=== PATIENT | male | born 1960 | race Hispanic/Latino ===

== ENCOUNTER 2023-04-22 18:35 | Inpatient (IN) | payer MEDICARE ==
[~2023-04-22] VITALS: Ht 170.2 cm; Wt 58.3 kg
[~2023-04-22 18:35] MED LIST: LIDOCAINE HCL 2% LOCAL INJ 5 ML SDV VIAL INJ ONE; POVIDONE IODINE 0.05% 0.05 % ML PO ONE; PROPOFOL IV EMULSION 10 MG/ML 20 ML VIAL ONE
[2023-04-22] MEDS ORDERED: ONDANSETRON HCL INJ 2MG/ML 2ML 2 MG/ML VIAL IV STA (18:44)
[2023-04-22] MEDS ORDERED: SODIUM CHLORIDE 0.9% 1000ML 1,000 ML IV ONE (18:45)
[2023-04-22 19:05] LABS: BASOPHILS % 0.1 % (0.0-1.0); EOSINOPHILS % 0.4 % (0.0-6.0); HEMATOCRIT 38.7 % (38.2-49.6); HEMOGLOBIN 13.8 g/dL (14.0-18.0); LYMPHOCYTES # (AUTO) 0.7 (1.0-3.2); LYMPHOCYTES % 9.3 % (18.0-39.1); MEAN CORPUSCULAR HEMOGLOBIN 33.2 pg (28-32); MEAN CORPUSCULAR HGB CONC 35.7 g/dL (31-35); MONOCYTES # (AUTO) 0.6 (0.2-0.8); MONOCYTES % 7.1 % (4.4-11.3); NEUTROPHILS # (AUTO) 6.5 (2.1-6.9); NEUTROPHILS % 82.8 % (38.7-80.0); PLATELET COUNT 188 x10e3/uL (140-360); RED BLOOD COUNT 4.16 x10e6/uL (4.3-5.7); RED CELL DISTRIBUTION WIDTH 11.7 % (11.7-14.4)
[2023-04-22 19:11] LABS: CLARITY,URINE CLEAR (CLEAR); COLOR,URINE YELLOW (YELLOW); KETONES,URINE NEGATIVE (NEGATIVE); LEUKOCYTE ESTERASE ,URINE NEGATIVE (NEGATIVE); NITRITE,URINE NEGATIVE (NEGATIVE); PROTEIN,URINE DIPSTICK NEGATIVE (NEGATIVE); URINE UROBILINOGEN 0.2 mg/dL (0.2 - 1)
[2023-04-22 19:19] LABS: ALBUMIN 3.9 g/dL (3.5-5.0); ALBUMIN/GLOBULIN RATIO 1.4 (0.8-2.0); ANION GAP 14.2 mmol/L (8-16); CALCIUM 9.4 mg/dL (8.4-10.2); CREATININE, SERUM 0.97 mg/dL (0.72-1.25); POTASSIUM 4.2 mmol/L (3.5-5.1)
[2023-04-22 19:22] LABS: BACTERIA,URINE RARE /HPF
[2023-04-22] MEDS ORDERED: IOPAMIDOL 370 MG/ML 100 ML INFUS..BTL INJ ONE (19:38)
[2023-04-22] MEDS ORDERED: DEXTROSE 50% SYRINGE 50 ML IV PRN (20:15)
[2023-04-22] MEDS: SODIUM CHLORIDE 0.9% 1000ML 1,000 ML IV SCH (20:53)
[2023-04-22] MEDS: INSULIN REGULAR, HUMAN 100 UNIT/1 ML SQ SCH (20:57)
[2023-04-22] MEDS: METRONIDAZOLE 500MG/NS 100ML 100 ML IV SCH (21:46)
[2023-04-22 23:45] VITALS: BP 133/68; O2SAT 100
[2023-04-23] VITALS (8 sets, daily range): BP systolic 112–133; BP diastolic 72–82; PULSE 60–84; RESP 16–20; TEMP 97.6–98; O2SAT 99–100
[2023-04-23] MEDS: ONDANSETRON HCL INJ 2MG/ML 2ML 2 MG/ML VIAL IV PRN ×3 (00:33→21:20)
[2023-04-23] MEDS: Morphine 2mg Syringe 2 MG/ML SYR IV PRN ×3 (00:33→21:21)
[2023-04-23] MEDS: METRONIDAZOLE 500MG/NS 100ML 100 ML IV SCH ×3 (05:18→17:10)
[2023-04-23] MEDS: SODIUM CHLORIDE 0.9% 1000ML 1,000 ML IV SCH ×3 (05:19→20:31)
[2023-04-23 06:29] LABS: BASOPHILS % 0.5 % (0.0-1.0); EOSINOPHILS # (AUTO) 0.3 (0.0-0.4); EOSINOPHILS % 4.4 % (0.0-6.0); HEMATOCRIT 33.6 % (38.2-49.6); HEMOGLOBIN 11.3 g/dL (14.0-18.0); LYMPHOCYTES # (AUTO) 1.3 (1.0-3.2); LYMPHOCYTES % 22.3 % (18.0-39.1); MEAN CORPUSCULAR HEMOGLOBIN 33.1 pg (28-32); MEAN CORPUSCULAR HGB CONC 33.6 g/dL (31-35); MEAN CORPUSCULAR VOLUME 98.5 fL (81-99); MONOCYTES # (AUTO) 0.6 (0.2-0.8); MONOCYTES % 11.3 % (4.4-11.3); NEUTROPHILS # (AUTO) 3.4 (2.1-6.9); NEUTROPHILS % 61.1 % (38.7-80.0); PLATELET COUNT 148 x10e3/uL (140-360); RED BLOOD COUNT 3.41 x10e6/uL (4.3-5.7); RED CELL DISTRIBUTION WIDTH 11.6 % (11.7-14.4)
[2023-04-23 06:53] LABS: ALBUMIN 3.1 g/dL (3.5-5.0); ALBUMIN/GLOBULIN RATIO 1.3 (0.8-2.0); ANION GAP 9.9 mmol/L (8-16); CALCIUM 8.1 mg/dL (8.4-10.2); CREATININE, SERUM 0.78 mg/dL (0.72-1.25); POTASSIUM 3.9 mmol/L (3.5-5.1)
[2023-04-23] MEDS ORDERED: GADOBENATE DIMEGLUMINE 1 ML IV ONE ×2 (08:44→10:38)
[2023-04-23] MEDS: INSULIN REGULAR, HUMAN 100 UNIT/1 ML SQ SCH ×4 (09:10→20:32)
[2023-04-23] MEDS ORDERED: LEVEMIR SQ (14:12)
[2023-04-23] MEDS ORDERED: GABAPENTIN400 MG PO (14:12)
[2023-04-23] MEDS ORDERED: GLIPIZIDE-METF1 EAC2 PO (14:12)
[2023-04-23] MEDS ORDERED: LOSARTAN POTASS50 MG PO (14:12)
[2023-04-23] MEDS ORDERED: TRULICITY1.5 MG/0.5 SQ (14:12)
[2023-04-23] MEDS: TAMSULOSIN HCL 0.4 MG CAP PO SCH (17:10)
[2023-04-23 23:32] LABS: FERRITIN 130.79 ng/mL (21.81-274.66)
[2023-04-24] VITALS (9 sets, daily range): BP systolic 127–150; BP diastolic 76–86; PULSE 75–86; RESP 17–20; TEMP 97–98.7; O2SAT 98–100
[2023-04-24] MEDS: METRONIDAZOLE 500MG/NS 100ML 100 ML IV SCH ×5 (00:54→23:37)
[2023-04-24] MEDS: SODIUM CHLORIDE 0.9% 1000ML 1,000 ML IV SCH ×3 (04:15→23:38)
[2023-04-24 06:20] LABS: BASOPHILS % 0.2 % (0.0-1.0); EOSINOPHILS # (AUTO) 0.3 (0.0-0.4); EOSINOPHILS % 4.8 % (0.0-6.0); HEMATOCRIT 34.5 % (38.2-49.6); HEMOGLOBIN 11.7 g/dL (14.0-18.0); LYMPHOCYTES # (AUTO) 1.4 (1.0-3.2); LYMPHOCYTES % 26.2 % (18.0-39.1); MEAN CORPUSCULAR HEMOGLOBIN 32.8 pg (28-32); MEAN CORPUSCULAR HGB CONC 33.9 g/dL (31-35); MEAN CORPUSCULAR VOLUME 96.6 fL (81-99); MONOCYTES # (AUTO) 0.5 (0.2-0.8); MONOCYTES % 9.5 % (4.4-11.3); NEUTROPHILS # (AUTO) 3.1 (2.1-6.9); NEUTROPHILS % 58.9 % (38.7-80.0); PLATELET COUNT 148 x10e3/uL (140-360); RED BLOOD COUNT 3.57 x10e6/uL (4.3-5.7); RED CELL DISTRIBUTION WIDTH 11.5 % (11.7-14.4)
[2023-04-24 06:48] LABS: ANION GAP 11.8 mmol/L (8-16); CALCIUM 8.5 mg/dL (8.4-10.2); CREATININE, SERUM 0.74 mg/dL (0.72-1.25); POTASSIUM 3.8 mmol/L (3.5-5.1)
[2023-04-24 07:09] LABS: MAGNESIUM 1.2 MG/DL (1.3-2.1)
[2023-04-24] MEDS: INSULIN REGULAR, HUMAN 100 UNIT/1 ML SQ SCH ×4 (07:30→20:25)
[2023-04-24] MEDS ORDERED: MAGNESIUM SULFATE 2GM/50ML IV ONE (09:15)
[2023-04-24] MEDS ORDERED: MAGNESIUM SULFATE 2GM/50ML 50 ML IV ONE (10:00)
[2023-04-24] MEDS: TAMSULOSIN HCL 0.4 MG CAP PO SCH (18:12)
[2023-04-25 00:52] VITALS: BP 101/60; PULSE 89; RESP 17; TEMP 97.5; O2SAT 100
[2023-04-25 04:00] VITALS: BP 136/84; PULSE 85; RESP 18; TEMP 98.7; O2SAT 100
[2023-04-25] MEDS: SODIUM CHLORIDE 0.9% 1000ML 1,000 ML IV SCH ×2 (04:15→12:05)
[2023-04-25] MEDS: METRONIDAZOLE 500MG/NS 100ML 100 ML IV SCH ×2 (05:31→12:00)
[2023-04-25] MEDS: ONDANSETRON HCL INJ 2MG/ML 2ML 2 MG/ML VIAL IV PRN (05:37)
[2023-04-25] MEDS: Morphine 2mg Syringe 2 MG/ML SYR IV PRN (05:38)
[2023-04-25 08:22] VITALS: BP 146/84; PULSE 78; RESP 22; TEMP 98.1; O2SAT 100
[2023-04-25] MEDS ORDERED: PANTOPRAZOLE SO40 MG PO (08:33)
[2023-04-25] MEDS ORDERED: FLOMAX0.4 MG PO (08:33)
[2023-04-25] MEDS ORDERED: ZEMPEP (08:35)
[2023-04-25] MEDS ORDERED: ZENPEP DR 40,01 EACH PO (08:37)
[2023-04-25] MEDS: INSULIN REGULAR, HUMAN 100 UNIT/1 ML SQ SCH ×2 (09:35→12:15)
[2023-04-25 09:39] VITALS: BP 146/84; PULSE 78; RESP 22; TEMP 98.1; O2SAT 100
[2023-04-25 12:17] VITALS: BP 156/89; PULSE 80; RESP 21; TEMP 97.7; O2SAT 100
== END 2023-04-25 13:40 | disposition home or self-care (01) | DRG 391 ==
LOC: ER 18:42 → ERHOLD 20:14 → MED/SURG3 23:31
PROVIDERS: ADMIT Internal Medicine; ATTEND Internal Medicine
PROC: 0DB78ZX Excision of Stomach, Pylorus, Via Natural or Artificial Opening Endoscopic, Diagnostic (ICD-10-PCS; 2023-04-24)
PROC: 0DB48ZX Excision of Esophagogastric Junction, Via Natural or Artificial Opening Endoscopic, Diagnostic (ICD-10-PCS; principal; 2023-04-24 16:24)
DX: K29.70 Gastritis, unspecified, without bleeding (principal); K85.90 Acute pancreatitis without necrosis or infection, unspecified; K29.80 Duodenitis without bleeding; E86.0 Dehydration; N40.0 Benign prostatic hyperplasia without lower urinary tract symptoms; E87.8 Other disorders of electrolyte and fluid balance, not elsewhere classified; I10 Essential (primary) hypertension; E11.9 Type 2 diabetes mellitus without complications; M19.90 Unspecified osteoarthritis, unspecified site; M54.50 Low back pain, unspecified; K52.9 Noninfective gastroenteritis and colitis, unspecified; K44.9 Diaphragmatic hernia without obstruction or gangrene
CPT/HCPCS: 36415; 43239; 74177; 74183; 80048; 80053; 81001; 82607; 82728; 82746; 82948; 83036; 83540; 83690; 83735; 84100; 84466; 85025; 85045; 88305; 88342; 96361; 99284; J0696; J2001; J2270; J2405; J3475; J7030; Q9967